=== PATIENT | female | born 1965 | race African-American/Black ===

== ENCOUNTER 2021-04-09 14:36 | Emergency (ER) | payer OTHER ==
[~2021-04-09] VITALS: Ht 157.5 cm; Wt 45.4 kg
--- NOTE | ~2021-04-09 | EMS ---
[address] [address] EMS Patient Care Report Name: FAITH MUÑIZ Room #: REG IHSAN Mosher#: [id number] Admission: 04/09/21 Attend Phys: Discharge: Date of : 63 Report #: [id number] THIS REPORT FOR: //name// Report Transmitted: 04/09/2021 15:06 EMS Care Summary [place], [place]/[facility] Incident [id number] @ 04/09/2021 14:02 Incident Location [address] [place] [address] DINING Patient FAITH MUÑIZ Female, 55 Years 1965 Patient Address [address] [place], [place] [id number] Patient History Diabetes,Hypertension (HTN),End Stage Renal Disease (ESRD),Lupus,Schizophrenia,Osteoarthritis,Anemia,Constipation,Hypothyroidism,Ins omnia, Patient Allergies Aspirin,Egg allergy,Martelle oil allergy,Magnesium Salicylate, Patient Medications Prednisone, Jazmin, Lisinopril, Simethicone, Depakote, Seroquel, Quetiapine, Melatonin, Levothyroxine, Zoloft, Metoprolol, Guaifenesin, Ondansetron, Folic acid, Chief Complaint MISSED 2 DIALYSIS APPOINTMENTS Disposition Transported No Lights/[place] Dispatch Reason Sick Person Transported To [address] [address] EMS Patient Care Report Name: FAITH MUÑZI Room #: REG [facility]#: [id number] Admission: 04/09/21 Attend Phys: Discharge: Date of : 63 Report #: [id number] Narrative DISPATCHED TO A SICK. ARRIVED ON SCENE OF ASSISTED TO FIND PATIENT SITTING IN HER WHEELCHAIR IN THE DINING ROOM WITH STAFF. THEY SAID THAT SHE MISSED HER FRIDAY AND TODAY DIALYSIS APPOINTMENT DUE TO MOVING FROM [facility] LAST WEEK. THEY SAID THEY WERE HAVING A HARD TIME GETTING HER SCHEDULED. STAFF SAID THERE WAS NO IMMEDIATE CONCERN BUT THEY WOULD LIKE HER TAKEN TO THE HOSPITAL FOR LABS TO SEE IF SHE NEEDS DIALYSIZED TODAY. PATIENT WAS ASSISTED IN MOVING OVER TO THE COT, SECURED WITH STRAPS, HER VITALS WERE OBTAINED, AND SHE WAS MOVED TO THE AMBULANCE. PATIENT DENIED ANY COMPLAINTS. SHE WAS TRANSPORTED TO THE HOSPITAL WITH VITALS MONITORED. UPON ARRICAL AT THE HOSPITAL PATIENT WAS MOVED INTO THE ED TRIAGE AREA ON THE COT AND ASSISTED IN MOVING OVER TO A WHEELCHAIR. PATIENT WAS MOVED TO TRIAGE EVALUATION ROOM AND PATIENT CARE WAS TURNED OVER TO ED TRIAGE NURSING STAFF. Initial Vitals @14:25P: 68,BP: 110/75, @14:21P: 70,BP: 109/64, @14:16P: 73,R: 18,BP: 116/55,Pain: 0/10,GCS: 14,SpO2: 100,Revised Trauma: 12, @14:31P: 69,R: 18,BP: 121/56,Pain: 0/10,GCS: 14,SpO2: 100,Revised Trauma: 12, Assessments @14:12MENTAL:Event Oriented,Person Oriented,Time Oriented,Place Oriented,SKIN:HEENT:Head/Face: No Abnormalities,Neck/Airway: No Abnormalities,LUNG SOUNDS:General: No Abnormalities,Left Upper: No Abnormalities,Right Upper: No Abnormalities,Left Lower: No Abnormalities,Right Lower: No Abnormalities,ABDOMEN:General: No Abnormalities,Left Upper: No Abnormalities,Right Upper: No Abnormalities,Left Lower: No Abnormalities,Right Lower: No Abnormalities,PELVIS//GI:No Abnormalities,EXTREMITIES:Left Leg: Other,Right Leg: Other,Right Leg: Paralysis,Left Leg: Paralysis,Capillary Refill: Right Upper: < 2 Sec,Left Arm: No Abnormalities,Right Arm: No Abnormalities,PULSE:Radial: 2+ Normal,NEURO:No Abnormalities, Impression Renal Failure Procedures @14:12ALS AssessmentResponse: UnchangedSucceeded Timeline 14:00,Call Received 14:00,Dispatch Notified 14:02,Dispatched 14:03,En Route 14:10,On Scene 14:12,At Patient 14:12,ALS Assessment,Response: UnchangedSucceeded, [address] [address] EMS Patient Care Report Name: FAITH MUÑIZ Room #: REG IHSAN Mosher#: [id number] Admission: 04/09/21 Attend Phys: Discharge: Date of : 63 Report #: [id number] 14:16,BP: 116/55 M,PULSE: 73,RR: 18 R,SPO2: 100 Ox,ETCO2: ,BG: ,PAIN: 0,GCS: 14, 14:21,Depart Scene 14:21,BP: 109/64 M,PULSE: 70,RR: R,SPO2: Ox,ETCO2: ,BG: ,PAIN: ,GCS: , 14:25,BP: 110/75 M,PULSE: 68,RR: R,SPO2: Ox,ETCO2: ,BG: ,PAIN: ,GCS: , 14:31,BP: 121/56 M,PULSE: 69,RR: 18 R,SPO2: 100 Ox,ETCO2: ,BG: ,PAIN: 0,GCS: 14, 14:34,At Destination 14:45,Call Closed Disclaimer v1.1 Copyright 2020 [employer] This EMS Care Summary contains data elements from the applicable legal record (which may be displayed differently). It is designed to provide pertinent information for the following purposes: continuity of care, clinical quality, and state data reporting. The complete legal record is available to ED staff and administrators of the receiving hospital in [employer] Patient Tracker. All data is provided "as is."
[2021-04-09 15:58] LABS: ABSOLUTE NEUTROPHILS 3.1 thou/uL (1.4-8.2); BASOPHILS 1.9 % (0.0-2.0); EOSINOPHILS 2.1 % (0.0-3.0); HEMATOCRIT 33.4 % (37.0-47.0); HEMOGLOBIN 10.7 gm/dL (12.0-15.0); LYMPHOCYTES 49.2 % (24.0-44.0); MCH 29.4 pg (26.0-34.0); MCV 91.7 fL (80.0-100.0); MONOCYTES 5.2 % (1.0-8.0); PLATELET COUNT 172 thou/uL (150-400); POLYS 41.6 % (36.0-66.0); RBC 3.64 mil/uL (4.20-5.00); RDW 16.6 % (10.5-14.5); WBC 7.5 thou/uL (4.0-11.0)
[2021-04-09 16:12] LABS: CALCIUM 8.5 mg/dL (8.5-10.1); CREATININE 12.6 mg/dL (0.6-1.0); POTASSIUM 5.4 mmol/L (3.5-5.1)
[2021-04-09 16:18] LABS: ALBUMIN 2.9 g/dL (3.4-5.0); TOTAL BILIRUBIN 0.5 mg/dL (0.2-1.0); TOTAL PROTEIN 6.4 g/dL (6.4-8.2)
[2021-04-09 18:35] VITALS: BP 141/74
--- NOTE | 2021-04-10 07:55 | EKG ---
[address] [place] [address] ELECTROCARDIOGRAM REPORT Name: FAITH MUÑIZ [facility] #: [facility] [id number] Admission: 04/09/21 Attend Phys: Discharge: 04/09/21 Date of : 63 Report #: [id number] [facility] ED Test Date: 2021-04-09 Test Time: 17:03:26 Pat Name: FAITH MUÑIZ Department: Room: Gender: F Seasoner: ARBEN : 1965 Requested By: Javad Kennedy Order Number: [id number] MD: Jonathan Chan Measurements Intervals [place] Rate: 65 P: 47 AK: 149 QRS: -10 QRSD: 88 T: 6 QT: 424 QTc: 441 Interpretive Statements Sinus rhythm No significant abnormality No previous ECG available for comparison Electronically Signed On 04-10-2021 7:55:43 CDT by Jonathan Chan [email or web address] <ELECTRONICALLY SIGNED> By: Jonathan Chan MD, [facility] 04/10/21 [id number] [id number] Jonathan Chan MD, FACC /EPI
== END 2021-04-09 20:30 | disposition home or self-care (01) ==
LOC: ER 14:36
PROVIDERS: Emergency Medicine
DX: N18.6 End stage renal disease (principal); Z99.2 Dependence on renal dialysis; Z88.6 Allergy status to analgesic agent; Z91.012 Allergy to eggs; Z91.018 Allergy to other foods